=== PATIENT | male | born 1955 | race Caucasian/White ===

== ENCOUNTER → 2017-08-16 | Outpatient (CLI) | payer BC ==
[~2017-08-16] MED LIST: AMLO5TAB4 PO; ASPI-621 PO; ATOR40TA PO; FENO48TA5 PO; ISOS30TA8 PO; LISI5TAB7 PO; METO25TA35 PO; TICA90TA PO
== END | disposition home or self-care (01) ==
LOC: RAD 15:32
PROVIDERS: ATTEND Family Medicine
DX: N13.39 Other hydronephrosis (principal); N20.0 Calculus of kidney
CPT/HCPCS: 76770

== ENCOUNTER → 2021-03-12 | Outpatient (CLI) | payer MEDICARE, BC ==
[~2021-03-12] MED LIST changes: -ASPI-621 PO; +ASPI81TA45 PO; +FENO48TA10 PO; -FENO48TA5 PO
== END | disposition home or self-care (01) ==
LOC: CFH 15:40
PROVIDERS: ATTEND Physician Assistant Medical
DX: I35.8 Other nonrheumatic aortic valve disorders (principal); I10 Essential (primary) hypertension; I25.5 Ischemic cardiomyopathy
CPT/HCPCS: C8929; Q9957

== ENCOUNTER → 2021-04-19 | Outpatient (CLI) | payer MEDICARE, BC | END | disposition home or self-care (01) | LOC: CFH 12:00 | PROVIDERS: ATTEND Physician Assistant Medical | DX: I21.19 ST elevation (STEMI) myocardial infarction involving other coronary artery of inferior wall (principal); I25.10 Atherosclerotic heart disease of native coronary artery without angina pectoris; I25.5 Ischemic cardiomyopathy; R94.31 Abnormal electrocardiogram [ECG] [EKG] | CPT/HCPCS: 78452; 93017; A9502 ==